=== PATIENT | male | born 1995 | race Caucasian/White ===

== ENCOUNTER 2023-04-22 23:53 | Emergency (ER) | payer OTHER ==
[~2023-04-22] VITALS: Ht 182.9 cm; Wt 90.7 kg
[2023-04-22 23:53] VITALS: BP 142/80; PULSE 106; RESP 18; TEMP 98.2; O2SAT 98
[2023-04-23 00:53] LABS: BASOPHILS # (AUTO) 0.1 K/uL (0.00-0.22); BASOPHILS % (AUTO) 0.7 % (0.0-2.0); EOSINOPHILS # (AUTO) 0.1 K/uL (0-0.4); EOSINOPHILS % (AUTO) 1.3 % (0.0-4.0); HEMATOCRIT 46.7 % (36-52); HEMOGLOBIN 15.7 g/dL (12.0-18.0); LYMPHOCYTES # (AUTO) 2.3 K/uL (2.0-11.5); LYMPHOCYTES % (AUTO) 30.6 % (20.5-51.1); MEAN CORPUSCULAR HEMOGLOBIN 29 pg (27-31); MEAN CORPUSCULAR HGB CONC 34 g/dL (33-37); MONOCYTES # (AUTO) 0.5 K/uL (0.8-1.0); MONOCYTES % (AUTO) 6.7 % (1.7-9.3); NEUTROPHILS # (AUTO) 4.6 K/uL (1.8-7.7); NEUTROPHILS % (AUTO) 60.7 % (42.2-75.2); PLATELET COUNT (AUTO) 329 K/uL (140-450); RED BLOOD CELL COUNT(AUTO) 5.37 MIL/uL (4.20-6.10); RED CELL DISTRIBUTION WIDTH 13.1 % (11.6-13.7); WHITE BLOOD COUNT (AUTO) 7.5 K/uL (4.8-10.8)
[2023-04-23 01:04] LABS: ANION GAP 14.2 (8-16); CALCIUM 8.8 mg/dL (8.5-10.1); CARBON DIOXIDE 26.9 mmol/L (21-32); CREATININE 1.2 mg/dL (0.6-1.3); POTASSIUM 5.1 mmol/L (3.5-5.1)
[2023-04-23] MEDS ORDERED: KEP500 PO (06:47)
[2023-04-23 07:10] VITALS: BP 123/76; PULSE 95; RESP 20; TEMP 98.5; O2SAT 95
== END 2023-04-23 07:10 | disposition home or self-care (01) ==
LOC: MED 23:53
DX: G93.0 Cerebral cysts (principal); R56.9 Unspecified convulsions; Z79.899 Other long term (current) drug therapy
CPT/HCPCS: 36415; 70450; 71045; 80048; 84146; 85025; 93005; 99285; Q0092